=== PATIENT | female | born 1980 | race Two or more races ===

== ENCOUNTER 2023-06-15 07:06 | Inpatient (IN) | payer OTHER ==
[~2023-06-15] VITALS: Ht 162.6 cm; Wt 91.2 kg
--- NOTE | 2023-06-15 07:21 | NUR ---
PACIENTE ALERTA Y ORIENTADA X3 REFIERE QUE TIENE DIARREAS CON SANGRADO X10 EN LAS ULTIMAS 24 HORAS. PACIENTE REFIERE COMER SOLIDO EL SABADO. REFIERE TENER DOLOR EN EL ABDOMEN EN FORMA DE CALAMBRES. PACIENTE REFIERE QUE EL VIERNES SE REALIZO RIZWANA COLONOSCOPIA CON EL .
[2023-06-15] MEDS ORDERED: METHYLPREDNISOLONE SOD SUCC 125 MG VIAL IV ONE (08:30)
[2023-06-15] MEDS ORDERED: DIPHENHYDRAMINE HCL 50 MG/ML VIAL 1ML IV ONE (08:30)
[2023-06-15] MEDS ORDERED: FAMOTIDINE/PF 20 MG in 0.9 % SODIUM CHLORIDE 8 ML IV PUSH STA (08:31)
--- NOTE | 2023-06-15 08:44 | NUR ---
PACIENTE ALERTA Y ORIENTADA X 3. SE ORIENTA POR MIS C RODRIGUEZ RN DE TRATAMIENTO CECILY ORDEN MEDICA. PACIENTE LE REFIERE ENTENDER. ESTA COLECTA MUESTRAS, CANALIZA Y ADMINISTRA MEDICAMENTOS CON MEDIDAS ASEPTICAS CORRESPONDIENTES.
[2023-06-15] MEDS ORDERED: ONDANSETRON HCL 2 MG/ML VIAL IV ONE (08:45)
[2023-06-15 08:52] LABS: HEMATOCRIT 37.8 % (36.0-45.00); HEMOGLOBIN 12.6 g/dL (12.0-15.00); MEAN CELL VOLUME 82.3 fL (80.00-100.00); MEAN CORPUSCULAR HEMOGLOBIN 27.4 pg (27.00-32.0); MEAN CORPUSCULAR HGB CONC 33.4 g/dl (32.0-36.0); PLATELET COUNT 352 K/uL (150-450); RED BLOOD COUNT 4.59 M/uL (4.00-6.00); RED CELL DISTRIBUTION WIDTH 14.4 % (11.5-14.5)
[2023-06-15 09:24] LABS: ALBUMIN 3.7 gm/dL (3.4-5.0); BILIRUBIN TOTAL 0.4 mg/dL (0.3-1.2); CALCIUM 9.1 mg/dL (8.5-10.1); CREATININE SERUM 0.98 mg/dL (0.55-1.02); GFR 61.65; GLOBULINA 4.1 G/DL (2.4-3.5); POTASSIUM 3.77 mEq/L (3.5-5.1); TOTAL PROTEIN 7.8 gm/dL (6.4-8.2)
[2023-06-15 11:02] LABS: INR 1.04; PARTIAL THROMBOPLASTIN TIME 31.3 SECONDS (22.0-34.0); PROTHROMBIN TIME 10.9 SECONDS (9.0-11.5)
[2023-06-15] MEDS ORDERED: ONDANSETRON HCL 2 MG/ML VIAL IV SCH (14:01)
[2023-06-15] MEDS ORDERED: PIPERACILLIN/TAZOBACTAM SODIUM 3.375 GM in 0.9 % SODIUM CHLORIDE 100 ML IV SCH (14:02)
[2023-06-15] MEDS ORDERED: PANTOPRAZOLE SODIUM 40 MG/VIAL VIAL IV SCH (14:02)
[2023-06-15] MEDS ORDERED: MEPERIDINE HCL/PF 25 MG/ML VIAL IM PRN (14:15)
== END 2023-06-16 18:30 | disposition home or self-care (01) | DRG 392 ==
LOC: ER 07:06 → SURH 15:10
PROVIDERS: General Practice; ADMIT Colon & Rectal Surgery; ATTEND Colon & Rectal Surgery
PROC: BW21Y0Z Computerized Tomography (CT Scan) of Abdomen and Pelvis using Other Contrast, Unenhanced and Enhanced (ICD-10-PCS; principal; 2023-06-15)
DX: K52.9 Noninfective gastroenteritis and colitis, unspecified (principal); Z20.822 Contact with and (suspected) exposure to COVID-19